=== PATIENT | male | born 1960 | race Caucasian/White ===

== ENCOUNTER 2017-11-20 15:17 | Inpatient (IN) | payer OTHER ==
[2017-11-20] MEDS: ONDANSETRON 4 MG INJ IV (20:50)
[2017-11-20] MEDS: morphine 4 MG/ML VIAL IV (20:50)
[2017-11-20] MEDS: SODIUM CHLORIDE 0.9% 1L BAG IV* (20:51)
[2017-11-20] MEDS: HYDROmorphONE 1 MG/ML SYG IV (21:02)
[2017-11-20 21:10] LABS: ABNORMAL IP MESSAGE 1; HEMATOCRIT 28.8 % (42.0-52.0); HEMOGLOBIN 9.3 g/dl (14.0-18.0); MEAN CORPUSCULAR HEMOGLOBIN 32.5 pg (29.0-33.0); MEAN CORPUSCULAR HGB CONC 32.3 g/dl (32.0-37.0); MEAN CORPUSCULAR VOLUME 100.7 fl (82.0-101.0); MEAN PLATELET VOLUME 11.3 fl (7.4-10.4); POSITIVE DIFF @See below; RED BLOOD COUNT 2.86 10^6/ul (4.70-6.10); RED CELL DISTRIBUTION WIDTH 13.3 % (11.5-14.5)
[2017-11-20 21:10] LABS: WHITE BLOOD COUNT 2.6 10^3/ul (4.8-10.8)
[2017-11-20 21:12] LABS: ADD MAN DIFF? YES; PLATELET COUNT 133 10^3/UL (140-415)
[2017-11-20] MEDS ORDERED: ONDANSETRON 4 MG INJ IV (21:30)
[2017-11-20] MEDS ORDERED: ACETAMINOPHEN 325 MG TAB PO (21:30)
[2017-11-20 21:35] LABS: PROTIME 13.3 Sec (11.9-14.9)
[2017-11-20 21:36] LABS: PARTIAL THROMBOPLASTIN TIME 35.8 Sec (25.0-35.0)
[2017-11-20] MEDS: AZTREONAM 1 GM/NS (PMX) 50 ML IVPB (21:38)
[2017-11-20 21:40] LABS: ANISOCYTOSIS 1+ (0-0); BAND NEUTROPHILS #M 0.1 10^3/ul (0.0-0.6); BAND NEUTROPHILS % (M) 4 % (0-4); BASOPHILS % (M) 1 % (0-2); EOSINOPHILS % (M) 10 % (0-7); ERYTHROBLAST% (NRBC) (M) 2 % (0-0); GIANT THROMBO% (M) 1 % (0-0); LYMPHOCYTES #M 0.3 10^3/ul (0.8-2.9); LYMPHOCYTES % (M) 14 % (15-51); MONOCYTE #M 0.3 10^3/ul (0.3-0.9); MONOCYTES % (M) 12 % (0-11); OVALOCYTES 1+ (0-0); PLATELET ESTIMATE NORMAL; POIKILOCYTOSIS 1+ (0-0); REACTIVE LYMPHOCYTES% (M) 1 % (0-0); SEG NEUT #M 1.5 10^3/ul (1.6-7.5); SEGMENTED NEUTROPHILS (M) % 59 % (39-77); SMUDGE%M 15 % (0-0)
[2017-11-20 21:42] LABS: ALANINE AMINOTRANSFERASE 47 IU/L (13-69); ALBUMIN 3.3 g/dl (3.3-4.9); ALKALINE PHOSPHATASE 170 IU/L (42-121); ANION GAP 9 (8-16); ASPARTATE AMINO TRANSFERASE 62 IU/L (15-46); BILIRUBIN,INDIRECT 0.3 mg/dl (0-1.1); BILIRUBIN,TOTAL 0.3 mg/dl (0.2-1.3); BLOOD UREA NITROGEN 15 mg/dl (7-20); CALCIUM 8.2 mg/dl (8.4-10.2); CARBON DIOXIDE 29 mmol/L (21-31); CHLORIDE 105 mmol/L (97-110); CREATININE 0.46 mg/dl (0.61-1.24); GLUCOSE 146 mg/dl (70-220); POTASSIUM 3.3 mmol/L (3.5-5.1); SODIUM 140 mmol/L (135-144); TOTAL PROTEIN 6.6 g/dl (6.1-8.1)
[2017-11-20 21:56] LABS: LACTIC ACID 1.5 mmol/L (0.5-2.0)
[2017-11-20 22:12] LABS: TROPONIN-I < 0.012 ng/ml (0.00-0.12)
[2017-11-20] MEDS: LORAZEPAM 2 MG INJ IV (22:18)
[2017-11-20] MEDS: KETOROLAC 30 MG INJ IV (22:19)
[2017-11-21] MEDS ORDERED: NACL 0.9% 3 ML SYG IV
[2017-11-21] MEDS ORDERED: ACETAMINOPHEN 325 MG TAB PO
[2017-11-21] MEDS ORDERED: ALBUTEROL/IPRATROPIUM (NEB) 3 ML AMP HHN
[2017-11-21] MEDS ORDERED: ONDANSETRON 4 MG INJ IV
[2017-11-21] MEDS ORDERED: morphine 2 MG INJ IV
[2017-11-21] MEDS ORDERED: ONDANSETRON 4 MG TAB PO
[2017-11-21] MEDS: morphine 2 MG INJ IV ×2 (05:43→10:09)
[2017-11-21] MEDS: clonAZEPAM 0.5 MG TAB PO (07:49)
[2017-11-21] MEDS: FERROUS SULFATE (EC) 325 MG TAB PO ×3 (08:24→21:17)
[2017-11-21] MEDS: DOCUSATE SODIUM 100 MG CAP PO ×2 (08:24→21:17)
[2017-11-21] MEDS: FOLIC ACID 1 MG TAB PO (08:24)
[2017-11-21] MEDS: DOLUTEGRAVIR SODIUM 50 MG TABLET PO (08:24)
[2017-11-21] MEDS: NICOTINE (21 MG/24 HR) PATCH TRANSDERM (08:25)
[2017-11-21] MEDS: ATOVAQUONE 750 MG/5 ML CUP PO (08:25)
[2017-11-21] MEDS: HEPARIN 5,000 UNIT/0.5 ML VIAL SC ×2 (08:26→21:19)
[2017-11-21] MEDS: HYDROmorphONE 2 MG/ML SYG IV (08:48)
[2017-11-21] MEDS: DARUNAVIR/COBICISTAT 1 EACH TABLET PO ×2 (08:52→10:10)
[2017-11-21] MEDS: AZTREONAM 1 GM/NS (PMX) 50 ML IVPB ×2 (11:28→21:24)
[2017-11-21] MEDS: HYDROmorphONE 0.5 MG/0.5 ML SYG IV ×4 (12:05→21:28)
[2017-11-21 15:38] LABS: WHITE BLOOD COUNT 2.3 10^3/ul (4.8-10.8)
[2017-11-21 15:38] LABS: ABNORMAL IP MESSAGE 1; HEMATOCRIT 28.5 % (42.0-52.0); HEMOGLOBIN 9.2 g/dl (14.0-18.0); MEAN CORPUSCULAR HEMOGLOBIN 33.7 pg (29.0-33.0); MEAN CORPUSCULAR HGB CONC 32.3 g/dl (32.0-37.0); MEAN CORPUSCULAR VOLUME 104.4 fl (82.0-101.0); MEAN PLATELET VOLUME 11.4 fl (7.4-10.4); PLATELET COUNT 116 10^3/UL (140-415); POSITIVE DIFF @See below; RED BLOOD COUNT 2.73 10^6/ul (4.70-6.10); RED CELL DISTRIBUTION WIDTH 13.9 % (11.5-14.5)
[2017-11-21 15:57] LABS: LACTIC ACID 1.5 mmol/L (0.5-2.0)
[2017-11-21] MEDS ORDERED: HYDROCODONE/APAP (10/325) TAB PO (16:00)
[2017-11-21 16:02] LABS: ALANINE AMINOTRANSFERASE 45 IU/L (13-69); ALBUMIN 3.2 g/dl (3.3-4.9); ALKALINE PHOSPHATASE 126 IU/L (42-121); ANION GAP 11 (8-16); ASPARTATE AMINO TRANSFERASE 84 IU/L (15-46); BILIRUBIN,INDIRECT 0.4 mg/dl (0-1.1); BILIRUBIN,TOTAL 0.4 mg/dl (0.2-1.3); BLOOD UREA NITROGEN 19 mg/dl (7-20); CARBON DIOXIDE 27 mmol/L (21-31); CHLORIDE 107 mmol/L (97-110); CREATININE 0.53 mg/dl (0.61-1.24); GLUCOSE 121 mg/dl (70-220); MAGNESIUM 1.7 mg/dl (1.7-2.5); PHOSPHORUS 2.1 mg/dl (2.5-4.9); POTASSIUM 4.5 mmol/L (3.5-5.1); SODIUM 140 mmol/L (135-144); TOTAL PROTEIN 6.4 g/dl (6.1-8.1)
[2017-11-21 16:05] LABS: ANION GAP 11 (8-16); BLOOD UREA NITROGEN 19 mg/dl (7-20); CARBON DIOXIDE 28 mmol/L (21-31); CHLORIDE 106 mmol/L (97-110); CREATININE 0.56 mg/dl (0.61-1.24); GLUCOSE 123 mg/dl (70-220); POTASSIUM 3.7 mmol/L (3.5-5.1); SODIUM 141 mmol/L (135-144)
[2017-11-21 16:20] LABS: ADD MAN DIFF? YES
[2017-11-21] MEDS: POTASSIUM CHLORIDE (SR) 10 MEQ TAB PO (16:34)
[2017-11-21 16:39] LABS: BASOPHILS % (M) 1 % (0-2); EOSINOPHILS % (M) 9 % (0-7); GIANT THROMBO% (M) 4 % (0-0); LYMPHOCYTES #M 0.2 10^3/ul (0.8-2.9); LYMPHOCYTES % (M) 13 % (15-51); MONOCYTE #M 0.3 10^3/ul (0.3-0.9); MONOCYTES % (M) 15 % (0-11); POIKILOCYTOSIS 1+ (0-0); REACTIVE LYMPHOCYTES% (M) 2 % (0-0); SEGMENTED NEUTROPHILS (M) % 61 % (39-77); SMUDGE%M 5 % (0-0)
[2017-11-21] MEDS: DIPHENHYDRAMINE 50 MG INJ IV (18:44)
[2017-11-21] MEDS: METHADONE 10 MG TAB PO (22:03)
[2017-11-21] MEDS: ALPRAZOLAM 0.5 MG TAB PO (22:32)
[2017-11-21] MEDS: CLINDAMYCIN 900 MG/D5W (PMX) 50 ML IVPB (22:32)
[2017-11-22] MEDS: HYDROmorphONE 0.5 MG/0.5 ML SYG IV ×5 (03:48→21:36)
[2017-11-22] MEDS: CLINDAMYCIN 900 MG/D5W (PMX) 50 ML IVPB ×3 (06:07→22:29)
[2017-11-22] MEDS: ALPRAZOLAM 0.5 MG TAB PO ×3 (06:07→23:02)
[2017-11-22] MEDS: AZTREONAM 1 GM/NS (PMX) 50 ML IVPB ×2 (08:39→21:20)
[2017-11-22] MEDS: NICOTINE (21 MG/24 HR) PATCH TRANSDERM (09:00)
[2017-11-22] MEDS: DOLUTEGRAVIR SODIUM 50 MG TABLET PO (09:25)
[2017-11-22] MEDS: FERROUS SULFATE (EC) 325 MG TAB PO ×3 (09:25→21:20)
[2017-11-22] MEDS: DOCUSATE SODIUM 100 MG CAP PO ×2 (09:25→21:20)
[2017-11-22] MEDS: FOLIC ACID 1 MG TAB PO (09:25)
[2017-11-22] MEDS: METHADONE 10 MG TAB PO ×3 (09:26→22:32)
[2017-11-22] MEDS: ATOVAQUONE 750 MG/5 ML CUP PO (09:26)
[2017-11-22] MEDS: HEPARIN 5,000 UNIT/0.5 ML VIAL SC (09:32)
[2017-11-22] MEDS: DARUNAVIR/COBICISTAT 1 EACH TABLET PO (10:47)
[2017-11-22] MEDS: SODIUM PHOSPHATE 30 MMOL in SOD CHLORIDE 0.9% 250 ML IVPB (16:38)
[2017-11-22] MEDS: BUSPIRONE 10 MG TAB PO (21:20)
[2017-11-23] MEDS: CLINDAMYCIN 900 MG/D5W (PMX) 50 ML IVPB ×3 (05:36→23:18)
[2017-11-23] MEDS: ALPRAZOLAM 0.5 MG TAB PO ×3 (06:05→21:18)
[2017-11-23 06:07] LABS: ADD MAN DIFF? NO
[2017-11-23 06:42] LABS: ABNORMAL IP MESSAGE 1; EOSINOPHILS # 0.3 10^3/ul (0.0-0.5); EOSINOPHILS % 15.3 % (0.0-7.0); HEMATOCRIT 26.4 % (42.0-52.0); HEMOGLOBIN 8.5 g/dl (14.0-18.0); LYMPHOCYTES # 0.3 10^3/ul (0.8-2.9); LYMPHOCYTES % 16.9 % (15.0-51.0); MEAN CORPUSCULAR HEMOGLOBIN 33.1 pg (29.0-33.0); MEAN CORPUSCULAR HGB CONC 32.2 g/dl (32.0-37.0); MEAN CORPUSCULAR VOLUME 102.7 fl (82.0-101.0); MEAN PLATELET VOLUME 11.1 fl (7.4-10.4); MONOCYTE # 0.2 10^3/ul (0.3-0.9); MONOCYTES % 12.6 % (0.0-11.0); NEUTROPHILS % 53.6 % (39.0-77.0); PLATELET COUNT 114 10^3/UL (140-415); POSITIVE DIFF @See below; RED BLOOD COUNT 2.57 10^6/ul (4.70-6.10); RED CELL DISTRIBUTION WIDTH 13.2 % (11.5-14.5)
[2017-11-23 06:42] LABS: WHITE BLOOD COUNT 1.8 10^3/ul (4.8-10.8)
[2017-11-23 07:02] LABS: ANION GAP 9 (8-16); BLOOD UREA NITROGEN 17 mg/dl (7-20); CARBON DIOXIDE 25 mmol/L (21-31); CHLORIDE 107 mmol/L (97-110); CREATININE 0.64 mg/dl (0.61-1.24); GLUCOSE 74 mg/dl (70-220); MAGNESIUM 1.7 mg/dl (1.7-2.5); PHOSPHORUS 4.6 mg/dl (2.5-4.9); POTASSIUM 4.3 mmol/L (3.5-5.1); SODIUM 137 mmol/L (135-144)
[2017-11-23 07:45] LABS: CALCIUM 7.4 mg/dl (8.4-10.2)
[2017-11-23] MEDS: NICOTINE (21 MG/24 HR) PATCH TRANSDERM (09:00)
[2017-11-23] MEDS: AZTREONAM 1 GM/NS (PMX) 50 ML IVPB ×2 (09:08→21:18)
[2017-11-23] MEDS: FERROUS SULFATE (EC) 325 MG TAB PO ×3 (09:59→21:17)
[2017-11-23] MEDS: FOLIC ACID 1 MG TAB PO (09:59)
[2017-11-23] MEDS: ATOVAQUONE 750 MG/5 ML CUP PO (09:59)
[2017-11-23] MEDS: DOLUTEGRAVIR SODIUM 50 MG TABLET PO (09:59)
[2017-11-23] MEDS: DARUNAVIR/COBICISTAT 1 EACH TABLET PO (09:59)
[2017-11-23] MEDS: DOCUSATE SODIUM 100 MG CAP PO ×2 (09:59→21:17)
[2017-11-23] MEDS: BUSPIRONE 10 MG TAB PO ×2 (09:59→21:17)
[2017-11-23] MEDS: HYDROmorphONE 0.5 MG/0.5 ML SYG IV ×2 (10:01→23:23)
[2017-11-23] MEDS: METHADONE 10 MG TAB PO ×3 (10:15→21:18)
[2017-11-23] MEDS: FLUCONAZOLE 100 MG TAB PO (13:28)
[2017-11-23] MEDS: ACYCLOVIR 400 MG TAB PO ×2 (13:28→21:17)
[2017-11-23] MEDS: ENOXAPARIN 60 MG/0.6 ML SYG SC ×2 (13:33→21:27)
[2017-11-23] MEDS: MAGNESIUM SULFATE 1 GM/D5W 100 ML IVPB (14:58)
[2017-11-23] MEDS: DIPHENHYDRAMINE 50 MG INJ IV (17:16)
[2017-11-24] MEDS: HYDROmorphONE 0.5 MG/0.5 ML SYG IV (05:30)
[2017-11-24] MEDS: CLINDAMYCIN 900 MG/D5W (PMX) 50 ML IVPB ×2 (05:30→14:00)
[2017-11-24] MEDS: ALPRAZOLAM 0.5 MG TAB PO (05:31)
[2017-11-24] MEDS: ATOVAQUONE 750 MG/5 ML CUP PO ×2 (09:18→10:00)
[2017-11-24] MEDS: BUSPIRONE 10 MG TAB PO ×3 (09:18→21:00)
[2017-11-24] MEDS: ACYCLOVIR 400 MG TAB PO ×3 (09:18→21:00)
[2017-11-24] MEDS: NICOTINE (21 MG/24 HR) PATCH TRANSDERM (09:18)
[2017-11-24] MEDS: FERROUS SULFATE (EC) 325 MG TAB PO ×4 (09:18→21:00)
[2017-11-24] MEDS: METHADONE 10 MG TAB PO ×4 (09:19→21:00)
[2017-11-24] MEDS: DOLUTEGRAVIR SODIUM 50 MG TABLET PO ×2 (09:19→10:00)
[2017-11-24] MEDS: DOCUSATE SODIUM 100 MG CAP PO ×3 (09:20→21:00)
[2017-11-24] MEDS: FLUCONAZOLE 100 MG TAB PO ×2 (09:20→10:00)
[2017-11-24] MEDS: FOLIC ACID 1 MG TAB PO ×2 (09:20→10:00)
[2017-11-24] MEDS: AZTREONAM 1 GM/NS (PMX) 50 ML IVPB (09:20)
[2017-11-24] MEDS: ENOXAPARIN 60 MG/0.6 ML SYG SC ×3 (09:21→21:00)
[2017-11-24] MEDS: DARUNAVIR/COBICISTAT 1 EACH TABLET PO ×2 (10:00→10:30)
[2017-11-24] MEDS ORDERED: LORAZEPAM 2 MG INJ (11:36)
[2017-11-24] MEDS: LORAZEPAM 2 MG INJ IV (11:40)
[2017-11-25] MEDS: ENOXAPARIN 60 MG/0.6 ML SYG SC ×2 (09:00→22:02)
[2017-11-25] MEDS: METHADONE 10 MG TAB PO ×2 (09:00→22:04)
[2017-11-25] MEDS: DOCUSATE SODIUM 100 MG CAP PO ×2 (09:01→21:59)
[2017-11-25] MEDS: FOLIC ACID 1 MG TAB PO (09:01)
[2017-11-25] MEDS: ACYCLOVIR 400 MG TAB PO ×2 (09:01→21:59)
[2017-11-25] MEDS: FLUCONAZOLE 100 MG TAB PO (09:01)
[2017-11-25] MEDS: BUSPIRONE 10 MG TAB PO ×2 (09:01→21:58)
[2017-11-25] MEDS: FERROUS SULFATE (EC) 325 MG TAB PO ×3 (09:01→21:59)
[2017-11-25] MEDS: NICOTINE (21 MG/24 HR) PATCH TRANSDERM (09:02)
[2017-11-25] MEDS: ATOVAQUONE 750 MG/5 ML CUP PO (09:02)
[2017-11-25] MEDS: DOLUTEGRAVIR SODIUM 50 MG TABLET PO (09:02)
[2017-11-25] MEDS: DARUNAVIR/COBICISTAT 1 EACH TABLET PO (09:02)
[2017-11-25] MEDS: HYDROmorphONE 2 MG TAB PO (09:02)
[2017-11-25] MEDS: CLINDAMYCIN 300 MG CAP PO ×4 (09:29→21:59)
[2017-11-25 14:17] LABS: ADD MAN DIFF? NO
[2017-11-25 14:19] LABS: ABNORMAL IP MESSAGE 1; BASOPHILS % 0.4 % (0.0-2.0); EOSINOPHILS # 0.3 10^3/ul (0.0-0.5); EOSINOPHILS % 13.6 % (0.0-7.0); HEMATOCRIT 27.6 % (42.0-52.0); HEMOGLOBIN 8.7 g/dl (14.0-18.0); LYMPHOCYTES # 0.3 10^3/ul (0.8-2.9); LYMPHOCYTES % 13.6 % (15.0-51.0); MEAN CORPUSCULAR HEMOGLOBIN 31.1 pg (29.0-33.0); MEAN CORPUSCULAR HGB CONC 31.5 g/dl (32.0-37.0); MEAN CORPUSCULAR VOLUME 98.6 fl (82.0-101.0); MEAN PLATELET VOLUME 10.9 fl (7.4-10.4); MONOCYTE # 0.2 10^3/ul (0.3-0.9); MONOCYTES % 8.7 % (0.0-11.0); NEUTROPHIL # 1.5 10^3/ul (1.6-7.5); NEUTROPHILS % 61.2 % (39.0-77.0); PLATELET COUNT 135 10^3/UL (140-415); POSITIVE DIFF @See below; RED CELL DISTRIBUTION WIDTH 13.2 % (11.5-14.5)
[2017-11-25 14:19] LABS: WHITE BLOOD COUNT 2.4 10^3/ul (4.8-10.8)
[2017-11-25 14:45] LABS: ANION GAP 11 (8-16); BLOOD UREA NITROGEN 15 mg/dl (7-20); CALCIUM 8.5 mg/dl (8.4-10.2); CARBON DIOXIDE 26 mmol/L (21-31); CHLORIDE 108 mmol/L (97-110); CREATININE 0.58 mg/dl (0.61-1.24); GLUCOSE 126 mg/dl (70-220); POTASSIUM 4.3 mmol/L (3.5-5.1); SODIUM 141 mmol/L (135-144)
[2017-11-25] MEDS ORDERED: SPECIAL NON-STANDARD MEDICATION PR (17:30)
[2017-11-25] MEDS ORDERED: [UNRECOGNIZED DRUG - OTHER] XX (17:30)
[2017-11-25] MEDS: DIPHENHYDRAMINE 25 MG CAP PO (22:03)
[2017-11-25] MEDS: HYDROmorphONE 0.5 MG/0.5 ML SYG IV (23:32)
[2017-11-26] MEDS: ZOLPIDEM 5 MG TAB PO (00:08)
[2017-11-26] MEDS: ALPRAZOLAM 0.5 MG TAB PO ×2 (03:09→22:49)
[2017-11-26 05:44] LABS: ABNORMAL IP MESSAGE 1; HEMATOCRIT 25.5 % (42.0-52.0); HEMOGLOBIN 8.6 g/dl (14.0-18.0); MEAN CORPUSCULAR HEMOGLOBIN 36.9 pg (29.0-33.0); MEAN CORPUSCULAR HGB CONC 33.7 g/dl (32.0-37.0); MEAN CORPUSCULAR VOLUME 109.4 fl (82.0-101.0); NUCLEATED RED BLOOD CELLS% 1.3 /100WBC (0.0-0.0); PLATELET COUNT 117 10^3/UL (140-415); POSITIVE DIFF @See below; RED BLOOD COUNT 2.33 10^6/ul (4.70-6.10); RED CELL DISTRIBUTION WIDTH 17.2 % (11.5-14.5)
[2017-11-26 05:44] LABS: WHITE BLOOD COUNT 1.6 10^3/ul (4.8-10.8)
[2017-11-26] MEDS: HYDROmorphONE 0.5 MG/0.5 ML SYG IV ×3 (05:55→20:18)
[2017-11-26] MEDS: DIPHENHYDRAMINE 25 MG CAP PO ×3 (05:56→20:16)
[2017-11-26 07:10] LABS: ADD MAN DIFF? YES
[2017-11-26 08:29] LABS: ANISOCYTOSIS 1+ (0-0); BAND NEUTROPHILS #M 0.1 10^3/ul (0.0-0.6); BAND NEUTROPHILS % (M) 8 % (0-4); BURR CELLS 1+ (0-0); EOSINOPHILS % (M) 15 % (0-7); ERYTHROBLAST% (NRBC) (M) 1 % (0-0); GIANT THROMBO% (M) 4 % (0-0); LYMPHOCYTES #M 0.2 10^3/ul (0.8-2.9); LYMPHOCYTES % (M) 16 % (15-51); MONOCYTE #M 0.2 10^3/ul (0.3-0.9); MONOCYTES % (M) 13 % (0-11); MYELOCYTES % (M) 3 % (0-0); PLATELET ESTIMATE DECREASED; POIKILOCYTOSIS 1+ (0-0); POLYCHROMASIA 1+ (0-0); REACTIVE LYMPHOCYTES% (M) 3 % (0-0); SEG NEUT #M 0.7 10^3/ul (1.6-7.5); SEGMENTED NEUTROPHILS (M) % 42 % (39-77); SMUDGE%M 7 % (0-0)
[2017-11-26] MEDS: BUSPIRONE 10 MG TAB PO ×3 (09:00→20:16)
[2017-11-26] MEDS: DOLUTEGRAVIR SODIUM 50 MG TABLET PO (09:17)
[2017-11-26] MEDS: FOLIC ACID 1 MG TAB PO (09:18)
[2017-11-26] MEDS: ACYCLOVIR 400 MG TAB PO ×2 (09:18→20:16)
[2017-11-26] MEDS: NICOTINE (21 MG/24 HR) PATCH TRANSDERM (09:18)
[2017-11-26] MEDS: FERROUS SULFATE (EC) 325 MG TAB PO ×3 (09:18→20:16)
[2017-11-26] MEDS: FLUCONAZOLE 100 MG TAB PO (09:18)
[2017-11-26] MEDS: METHADONE 10 MG TAB PO ×2 (09:19→20:16)
[2017-11-26] MEDS: DOCUSATE SODIUM 100 MG CAP PO ×2 (09:19→20:16)
[2017-11-26] MEDS: CLINDAMYCIN 300 MG CAP PO ×4 (09:20→20:16)
[2017-11-26] MEDS: ENOXAPARIN 60 MG/0.6 ML SYG SC ×2 (09:24→20:21)
[2017-11-26] MEDS: DARUNAVIR/COBICISTAT 1 EACH TABLET PO (09:28)
[2017-11-26] MEDS: ATOVAQUONE 750 MG/5 ML CUP PO (12:43)
[2017-11-26] MEDS: CALAMINE/PRAMOXINE LOT 180 ML BTL TOP (12:44)
[2017-11-26 13:18] LABS: ANION GAP 13 (8-16); BLOOD UREA NITROGEN 16 mg/dl (7-20); CALCIUM 8.8 mg/dl (8.4-10.2); CARBON DIOXIDE 30 mmol/L (21-31); CHLORIDE 103 mmol/L (97-110); GLUCOSE 124 mg/dl (70-220); POTASSIUM 4.5 mmol/L (3.5-5.1); SODIUM 141 mmol/L (135-144)
[2017-11-27] MEDS: HYDROmorphONE 0.5 MG/0.5 ML SYG IV ×2 (04:43→10:43)
[2017-11-27] MEDS: ENOXAPARIN 60 MG/0.6 ML SYG SC ×3 (09:00→20:54)
[2017-11-27] MEDS: DIPHENHYDRAMINE 25 MG CAP PO ×2 (09:49→20:53)
[2017-11-27] MEDS: ALPRAZOLAM 0.5 MG TAB PO (09:49)
[2017-11-27] MEDS: METHADONE 10 MG TAB PO (09:49)
[2017-11-27] MEDS: DOLUTEGRAVIR SODIUM 50 MG TABLET PO (09:49)
[2017-11-27] MEDS: ATOVAQUONE 750 MG/5 ML CUP PO (09:51)
[2017-11-27] MEDS: BUSPIRONE 10 MG TAB PO ×2 (09:51→20:53)
[2017-11-27] MEDS: DOCUSATE SODIUM 100 MG CAP PO ×2 (09:51→20:53)
[2017-11-27] MEDS: CLINDAMYCIN 300 MG CAP PO ×4 (09:51→20:53)
[2017-11-27] MEDS: FLUCONAZOLE 100 MG TAB PO (09:51)
[2017-11-27] MEDS: FOLIC ACID 1 MG TAB PO (09:51)
[2017-11-27] MEDS: NICOTINE (21 MG/24 HR) PATCH TRANSDERM (09:51)
[2017-11-27] MEDS: FERROUS SULFATE (EC) 325 MG TAB PO ×3 (09:51→20:53)
[2017-11-27] MEDS: ACYCLOVIR 400 MG TAB PO ×2 (09:51→20:53)
[2017-11-27] MEDS: DARUNAVIR/COBICISTAT 1 EACH TABLET PO (10:51)
[2017-11-27 11:21] LABS: ABNORMAL IP MESSAGE 1; HEMATOCRIT 28.9 % (42.0-52.0); HEMOGLOBIN 10.3 g/dl (14.0-18.0); MEAN CORPUSCULAR HEMOGLOBIN 38.3 pg (29.0-33.0); MEAN CORPUSCULAR HGB CONC 35.6 g/dl (32.0-37.0); MEAN CORPUSCULAR VOLUME 107.4 fl (82.0-101.0); MEAN PLATELET VOLUME 11.5 fl (7.4-10.4); PLATELET COUNT 151 10^3/UL (140-415); POSITIVE DIFF @See below; RED BLOOD COUNT 2.69 10^6/ul (4.70-6.10); RED CELL DISTRIBUTION WIDTH 19.1 % (11.5-14.5)
[2017-11-27 11:24] LABS: ADD MAN DIFF? YES
[2017-11-27 11:57] LABS: ANION GAP 12 (8-16); BLOOD UREA NITROGEN 18 mg/dl (7-20); CALCIUM 8.8 mg/dl (8.4-10.2); CARBON DIOXIDE 28 mmol/L (21-31); CHLORIDE 103 mmol/L (97-110); CREATININE 0.65 mg/dl (0.61-1.24); GLUCOSE 121 mg/dl (70-220); POTASSIUM 4.8 mmol/L (3.5-5.1); SODIUM 138 mmol/L (135-144)
[2017-11-27 12:43] LABS: ANISOCYTOSIS 1+ (0-0); BAND NEUTROPHILS #M 0.1 10^3/ul (0.0-0.6); BAND NEUTROPHILS % (M) 9 % (0-4); BASOPHILS % (M) 1 % (0-2); EOSINOPHILS % (M) 16 % (0-7); GIANT THROMBO% (M) 3 % (0-0); LYMPHOCYTES #M 0.2 10^3/ul (0.8-2.9); LYMPHOCYTES % (M) 11 % (15-51); METAMYELOCYTES %M 2 % (0-0); MONOCYTE #M 0.2 10^3/ul (0.3-0.9); MONOCYTES % (M) 13 % (0-11); MYELOCYTES % (M) 1 % (0-0); PLATELET ESTIMATE NORMAL; POLYCHROMASIA 1+ (0-0); PROMYELOCYTES % (M) 1 % (0-0); REACTIVE LYMPHOCYTES% (M) 4 % (0-0); SEG NEUT #M 0.8 10^3/ul (1.6-7.5); SEGMENTED NEUTROPHILS (M) % 42 % (39-77); SMUDGE%M 15 % (0-0)
[2017-11-27] MEDS: HYDROCODONE/APAP (10/325) TAB PO (17:56)
[2017-11-27] MEDS: WARFARIN 5 MG TAB PO (17:56)
[2017-11-27] MEDS: clonAZEPAM 0.5 MG TAB PO (20:53)
[2017-11-28] MEDS: HYDROCODONE/APAP (10/325) TAB PO
[2017-11-28] MEDS: DIPHENHYDRAMINE 25 MG CAP PO ×4 (02:44→22:24)
[2017-11-28 05:35] LABS: ABNORMAL IP MESSAGE 1; HEMATOCRIT 27.2 % (42.0-52.0); HEMOGLOBIN 9.3 g/dl (14.0-18.0); MEAN CORPUSCULAR HEMOGLOBIN 37.5 pg (29.0-33.0); MEAN CORPUSCULAR HGB CONC 34.2 g/dl (32.0-37.0); MEAN CORPUSCULAR VOLUME 109.7 fl (82.0-101.0); MEAN PLATELET VOLUME 11.7 fl (7.4-10.4); PLATELET COUNT 141 10^3/UL (140-415); POSITIVE DIFF @See below; RED BLOOD COUNT 2.48 10^6/ul (4.70-6.10); RED CELL DISTRIBUTION WIDTH 18.2 % (11.5-14.5)
[2017-11-28 05:35] LABS: WHITE BLOOD COUNT 1.8 10^3/ul (4.8-10.8)
[2017-11-28 05:49] LABS: ANION GAP 12 (8-16); BLOOD UREA NITROGEN 20 mg/dl (7-20); CALCIUM 8.4 mg/dl (8.4-10.2); CARBON DIOXIDE 29 mmol/L (21-31); CHLORIDE 104 mmol/L (97-110); CREATININE 0.72 mg/dl (0.61-1.24); GLUCOSE 110 mg/dl (70-220); MAGNESIUM 1.8 mg/dl (1.7-2.5); PHOSPHORUS 4.2 mg/dl (2.5-4.9); POTASSIUM 4.7 mmol/L (3.5-5.1); SODIUM 140 mmol/L (135-144)
[2017-11-28 05:59] LABS: ADD MAN DIFF? YES; INR 1.15; PROTIME 14.9 Sec (11.9-14.9); PT RATIO 1.2
[2017-11-28] MEDS: ACYCLOVIR 400 MG TAB PO ×2 (08:22→21:25)
[2017-11-28] MEDS: FLUCONAZOLE 100 MG TAB PO (08:22)
[2017-11-28] MEDS: FERROUS SULFATE (EC) 325 MG TAB PO ×3 (08:22→21:26)
[2017-11-28] MEDS: FOLIC ACID 1 MG TAB PO (08:23)
[2017-11-28] MEDS: ATOVAQUONE 750 MG/5 ML CUP PO (08:23)
[2017-11-28] MEDS: DOLUTEGRAVIR SODIUM 50 MG TABLET PO (08:23)
[2017-11-28] MEDS: DOCUSATE SODIUM 100 MG CAP PO ×2 (08:23→21:26)
[2017-11-28] MEDS: CLINDAMYCIN 300 MG CAP PO ×4 (08:23→21:26)
[2017-11-28] MEDS: NICOTINE (21 MG/24 HR) PATCH TRANSDERM (08:23)
[2017-11-28] MEDS: BUSPIRONE 10 MG TAB PO ×2 (08:23→22:24)
[2017-11-28] MEDS: clonAZEPAM 0.5 MG TAB PO ×2 (08:23→22:24)
[2017-11-28] MEDS: ENOXAPARIN 60 MG/0.6 ML SYG SC ×2 (08:25→21:29)
[2017-11-28] MEDS: DARUNAVIR/COBICISTAT 1 EACH TABLET PO ×2 (09:00→09:37)
[2017-11-28 13:10] LABS: ANISOCYTOSIS 1+ (0-0); BAND NEUTROPHILS #M 0.1 10^3/ul (0.0-0.6); BAND NEUTROPHILS % (M) 9 % (0-4); BASOPHILS % (M) 1 % (0-2); EOSINOPHILS % (M) 19 % (0-7); ERYTHROBLAST% (NRBC) (M) 1 % (0-0); GIANT THROMBO% (M) 4 % (0-0); LYMPHOCYTES #M 0.1 10^3/ul (0.8-2.9); LYMPHOCYTES % (M) 9 % (15-51); METAMYELOCYTES %M 2 % (0-0); MONOCYTE #M 0.3 10^3/ul (0.3-0.9); MONOCYTES % (M) 22 % (0-11); MYELOCYTES % (M) 1 % (0-0); OVALOCYTES 2+ (0-0); PLATELET ESTIMATE NORMAL; POIKILOCYTOSIS 2+ (0-0); POLYCHROMASIA 2+ (0-0); REACTIVE LYMPHOCYTES% (M) 2 % (0-0); SEG NEUT #M 0.7 10^3/ul (1.6-7.5); SEGMENTED NEUTROPHILS (M) % 38 % (39-77); SMUDGE%M 9 % (0-0)
[2017-11-28] MEDS: ALPRAZOLAM 0.25 MG TAB PO ×2 (13:37→21:26)
[2017-11-28] MEDS: HYDROmorphONE 2 MG TAB PO ×2 (14:48→21:27)
[2017-11-28] MEDS: WARFARIN 5 MG TAB PO (17:37)
[2017-11-29] MEDS: HYDROmorphONE 2 MG TAB PO ×3 (08:38→21:02)
[2017-11-29] MEDS: ALPRAZOLAM 0.25 MG TAB PO ×2 (08:38→17:04)
[2017-11-29] MEDS: FLUCONAZOLE 100 MG TAB PO (08:38)
[2017-11-29] MEDS: BUSPIRONE 10 MG TAB PO ×2 (08:39→20:59)
[2017-11-29] MEDS: FERROUS SULFATE (EC) 325 MG TAB PO ×3 (08:39→20:59)
[2017-11-29] MEDS: CLINDAMYCIN 300 MG CAP PO ×4 (08:39→20:59)
[2017-11-29] MEDS: ATOVAQUONE 750 MG/5 ML CUP PO (08:39)
[2017-11-29] MEDS: ACYCLOVIR 400 MG TAB PO ×2 (08:39→20:59)
[2017-11-29] MEDS: FOLIC ACID 1 MG TAB PO (08:39)
[2017-11-29] MEDS: DOLUTEGRAVIR SODIUM 50 MG TABLET PO (08:39)
[2017-11-29] MEDS: DARUNAVIR/COBICISTAT 1 EACH TABLET PO (08:39)
[2017-11-29] MEDS: DOCUSATE SODIUM 100 MG CAP PO ×2 (08:39→20:59)
[2017-11-29] MEDS: NICOTINE (21 MG/24 HR) PATCH TRANSDERM (08:43)
[2017-11-29] MEDS: ENOXAPARIN 60 MG/0.6 ML SYG SC ×2 (08:43→20:58)
[2017-11-29] MEDS: clonAZEPAM 0.5 MG TAB PO ×2 (09:28→20:59)
[2017-11-29] MEDS: DIPHENHYDRAMINE 25 MG CAP PO ×2 (11:59→22:27)
[2017-11-29 16:26] LABS: INR 1.18; PROTIME 15.2 Sec (11.9-14.9); PT RATIO 1.2
[2017-11-29] MEDS: WARFARIN 5 MG TAB PO (17:04)
[2017-11-29] MEDS: TRIAMCINOLONE ACET 0.1% 15 GM CR TOP (20:59)
[2017-11-30] MEDS: ALPRAZOLAM 0.25 MG TAB PO ×2 (02:14→15:05)
[2017-11-30] MEDS: HYDROmorphONE 2 MG TAB PO ×3 (07:53→22:30)
[2017-11-30] MEDS: FOLIC ACID 1 MG TAB PO (08:11)
[2017-11-30] MEDS: BUSPIRONE 10 MG TAB PO ×2 (08:11→21:44)
[2017-11-30] MEDS: DOCUSATE SODIUM 100 MG CAP PO ×2 (08:11→21:45)
[2017-11-30] MEDS: ENOXAPARIN 60 MG/0.6 ML SYG SC ×3 (08:11→21:00)
[2017-11-30] MEDS: clonAZEPAM 0.5 MG TAB PO ×2 (08:11→21:45)
[2017-11-30] MEDS: FLUCONAZOLE 100 MG TAB PO (08:11)
[2017-11-30] MEDS: CLINDAMYCIN 300 MG CAP PO ×4 (08:11→21:44)
[2017-11-30] MEDS: ATOVAQUONE 750 MG/5 ML CUP PO (08:12)
[2017-11-30] MEDS: FERROUS SULFATE (EC) 325 MG TAB PO ×3 (08:12→21:45)
[2017-11-30] MEDS: NICOTINE (21 MG/24 HR) PATCH TRANSDERM (08:12)
[2017-11-30] MEDS: DOLUTEGRAVIR SODIUM 50 MG TABLET PO (08:12)
[2017-11-30] MEDS: TRIAMCINOLONE ACET 0.1% 15 GM CR TOP ×2 (08:13→21:45)
[2017-11-30] MEDS: ACYCLOVIR 400 MG TAB PO ×2 (08:22→21:45)
[2017-11-30] MEDS: DARUNAVIR/COBICISTAT 1 EACH TABLET PO (10:32)
[2017-11-30] MEDS: EMTRICITABINE/TENOFOV ALAFENAM 1 EACH TABLET PO (17:15)
[2017-11-30] MEDS: WARFARIN 3 MG TAB PO (17:15)
[2017-11-30 18:07] LABS: ABNORMAL IP MESSAGE 1; HEMATOCRIT 31.1 % (42.0-52.0); HEMOGLOBIN 10.2 g/dl (14.0-18.0); MEAN CORPUSCULAR HEMOGLOBIN 35.5 pg (29.0-33.0); MEAN CORPUSCULAR HGB CONC 32.8 g/dl (32.0-37.0); MEAN CORPUSCULAR VOLUME 108.4 fl (82.0-101.0); MEAN PLATELET VOLUME 11.5 fl (7.4-10.4); PLATELET COUNT 156 10^3/UL (140-415); POSITIVE DIFF @See below; RED BLOOD COUNT 2.87 10^6/ul (4.70-6.10); RED CELL DISTRIBUTION WIDTH 16.1 % (11.5-14.5)
[2017-11-30 18:07] LABS: WHITE BLOOD COUNT 2.3 10^3/ul (4.8-10.8)
[2017-11-30 18:08] LABS: ADD MAN DIFF? YES
[2017-11-30 18:26] LABS: INR 1.35; PROTIME 16.9 Sec (11.9-14.9); PT RATIO 1.3
[2017-11-30 18:48] LABS: ANISOCYTOSIS 1+ (0-0); EOSINOPHILS % (M) 25 % (0-7); ERYTHROBLAST% (NRBC) (M) 2 % (0-0); GIANT THROMBO% (M) 4 % (0-0); LYMPHOCYTES #M 0.2 10^3/ul (0.8-2.9); LYMPHOCYTES % (M) 11 % (15-51); MONOCYTE #M 0.1 10^3/ul (0.3-0.9); MONOCYTES % (M) 5 % (0-11); PLATELET ESTIMATE NORMAL; POIKILOCYTOSIS 1+ (0-0); POLYCHROMASIA 1+ (0-0); REACTIVE LYMPHOCYTES% (M) 3 % (0-0); SEGMENTED NEUTROPHILS (M) % 56 % (39-77); SMUDGE%M 40 % (0-0)
[2017-12-01] MEDS: ALPRAZOLAM 0.25 MG TAB PO ×2 (00:13→10:06)
[2017-12-01] MEDS: DIPHENHYDRAMINE 25 MG CAP PO (01:25)
[2017-12-01] MEDS: HYDROmorphONE 2 MG TAB PO ×3 (04:39→12:57)
[2017-12-01] MEDS: FERROUS SULFATE (EC) 325 MG TAB PO ×2 (08:48→12:56)
[2017-12-01] MEDS: FLUCONAZOLE 100 MG TAB PO (08:48)
[2017-12-01] MEDS: DOCUSATE SODIUM 100 MG CAP PO (08:48)
[2017-12-01] MEDS: CLINDAMYCIN 300 MG CAP PO (08:48)
[2017-12-01] MEDS: ACYCLOVIR 400 MG TAB PO (08:48)
[2017-12-01] MEDS: FOLIC ACID 1 MG TAB PO (08:48)
[2017-12-01] MEDS: EMTRICITABINE/TENOFOV ALAFENAM 1 EACH TABLET PO (08:49)
[2017-12-01] MEDS: BUSPIRONE 10 MG TAB PO (08:49)
[2017-12-01] MEDS: DARUNAVIR/COBICISTAT 1 EACH TABLET PO (08:49)
[2017-12-01] MEDS: clonAZEPAM 0.5 MG TAB PO (08:49)
[2017-12-01] MEDS: DOLUTEGRAVIR SODIUM 50 MG TABLET PO (08:49)
[2017-12-01] MEDS: ATOVAQUONE 750 MG/5 ML CUP PO (08:51)
[2017-12-01] MEDS: NICOTINE (21 MG/24 HR) PATCH TRANSDERM (08:52)
[2017-12-01] MEDS: ENOXAPARIN 60 MG/0.6 ML SYG SC (08:54)
[2017-12-01] MEDS: TRIAMCINOLONE ACET 0.1% 15 GM CR TOP (08:57)
[2017-12-01] MEDS ORDERED: HYDROmorphONE 2 MG TAB PO (13:00)
== END 2017-12-01 15:43 | disposition left against medical advice (07) | DRG 975 ==
LOC: E/R 15:17 → PP2 21:29
DX: B20 Human immunodeficiency virus [HIV] disease (principal); A41.9 Sepsis, unspecified organism; L03.116 Cellulitis of left lower limb; D61.818 Other pancytopenia; L03.115 Cellulitis of right lower limb; I82.612 Acute embolism and thrombosis of superficial veins of left upper extremity; E87.6 Hypokalemia; I89.0 Lymphedema, not elsewhere classified; F41.9 Anxiety disorder, unspecified; F32.9 Major depressive disorder, single episode, unspecified; B19.20 Unspecified viral hepatitis C without hepatic coma; L98.499 Non-pressure chronic ulcer of skin of other sites with unspecified severity; Z59.0 Homelessness; Z91.14 Patient's other noncompliance with medication regimen
CPT/HCPCS: 36415; 71045; 73130-LT; 73130-RT; 80048; 80053; 83605; 83735; 84100; 84484; 85025; 85610; 85730; 87040; 87045; 87075; 87081; 93005; 93971; 96374; 96375; 99291-25